=== PATIENT | female | born 1965 | race Caucasian/White ===

== ENCOUNTER 2017-10-27 10:25 | Outpatient (CLI) | payer OTHER | END 2017-10-27 10:33 | disposition home or self-care (01) | LOC: NUCLEAR 10:25 | DX: M79.609 Pain in unspecified limb (principal); M79.89 Other specified soft tissue disorders; E55.9 Vitamin D deficiency, unspecified; N60.12 Diffuse cystic mastopathy of left breast; N60.11 Diffuse cystic mastopathy of right breast; R92.1 Mammographic calcification found on diagnostic imaging of breast; R87.610 Atypical squamous cells of undetermined significance on cytologic smear of cervix (ASC-US); R68.82 Decreased libido; E66.9 Obesity, unspecified; N39.46 Mixed incontinence ==

== ENCOUNTER 2017-10-31 11:02 | Outpatient (CLI) | payer OTHER | END 2017-10-31 12:00 | disposition home or self-care (01) | LOC: NUCLEAR 11:02 | DX: M79.609 Pain in unspecified limb (principal); M79.89 Other specified soft tissue disorders; N60.12 Diffuse cystic mastopathy of left breast; N60.11 Diffuse cystic mastopathy of right breast; E55.9 Vitamin D deficiency, unspecified; N39.46 Mixed incontinence; R92.1 Mammographic calcification found on diagnostic imaging of breast; E66.8 Other obesity; R87.610 Atypical squamous cells of undetermined significance on cytologic smear of cervix (ASC-US); R68.82 Decreased libido ==

== ENCOUNTER 2018-10-10 13:09 | Outpatient (CLI) | payer OTHER | END 2018-10-10 13:27 | disposition home or self-care (01) | LOC: RAD 501 13:09 | DX: M25.572 Pain in left ankle and joints of left foot (principal) ==

== ENCOUNTER 2019-03-21 12:11 | Outpatient (CLI) | payer OTHER | END 2019-03-21 12:19 | disposition home or self-care (01) | LOC: LAB 12:11 | DX: J45.41 Moderate persistent asthma with (acute) exacerbation (principal); J30.1 Allergic rhinitis due to pollen ==

== ENCOUNTER 2019-03-21 12:34 | Outpatient (CLI) | payer OTHER | END 2019-03-21 12:35 | disposition home or self-care (01) | LOC: RAD 12:34 | DX: J45.41 Moderate persistent asthma with (acute) exacerbation (principal); R06.02 Shortness of breath ==

== ENCOUNTER → 2019-04-25 | Outpatient (CLI) | payer OTHER ==
[~2019-04-25] MED LIST: ASA81 MG PO; BUDESONIDE0.5 MG/2 M IH; COZAAR100 MG PO; METFORMIN HCL500 MG PO; TOPROL XL25 MG PO
== END | disposition home or self-care (01) ==
LOC: RAD 11:36
DX: M25.561 Pain in right knee (principal)

== ENCOUNTER 2019-04-26 08:25 | Outpatient (CLI) | payer OTHER ==
[2019-04-26] MEDS ORDERED: METFORMIN HCL500 MG PO (11:06)
[2019-04-26] MEDS ORDERED: COZAAR100 MG PO (11:06)
[2019-04-26] MEDS ORDERED: TOPROL XL25 MG PO (11:07)
[2019-04-26] MEDS ORDERED: ASA81 MG PO (11:08)
[2019-04-26] MEDS ORDERED: BUDESONIDE0.5 MG/2 M IH (11:23)
== END 2019-04-26 09:33 | disposition home or self-care (01) ==
LOC: LAB 08:25
DX: D64.89 Other specified anemias (principal); E88.89 Other specified metabolic disorders; D68.8 Other specified coagulation defects; N39.0 Urinary tract infection, site not specified; Z22.322 Carrier or suspected carrier of Methicillin resistant Staphylococcus aureus; Z76.89 Persons encountering health services in other specified circumstances; I49.8 Other specified cardiac arrhythmias

== ENCOUNTER 2019-05-02 09:13 | Outpatient (CLI) | payer OTHER ==
[2019-05-02] MEDS ORDERED: TOPROL XL50 M1 PO (15:35)
[2019-05-02] MEDS ORDERED: [UNRECOGNIZED DRUG - OTHER] IH (15:36)
== END 2019-05-02 09:19 | disposition home or self-care (01) ==
LOC: LAB 09:13
DX: E11.9 Type 2 diabetes mellitus without complications (principal)

== ENCOUNTER 2019-05-03 05:34 | Day surgery (SDC) | payer OTHER ==
[~2019-05-03 05:34] MED LIST changes: +TOPROL XL50 M1 PO; +[UNRECOGNIZED DRUG - OTHER] IH
== END 2019-05-03 14:10 | disposition home or self-care (01) ==
LOC: CIR.AMB 05:34
DX: M23.321 Other meniscus derangements, posterior horn of medial meniscus, right knee (principal); M23.351 Other meniscus derangements, posterior horn of lateral meniscus, right knee; M12.261 Villonodular synovitis (pigmented), right knee

== ENCOUNTER 2023-05-11 12:33 | Outpatient (CLI) | payer OTHER | END 2023-05-11 12:37 | disposition home or self-care (01) | LOC: NUCLEAR 12:33 | PROVIDERS: ATTEND Specialist | DX: I73.9 Peripheral vascular disease, unspecified (principal) ==

== ENCOUNTER 2023-06-01 09:23 | Outpatient (CLI) | payer OTHER | END 2023-06-01 09:34 | disposition home or self-care (01) | LOC: NUCLEAR 09:23 | PROVIDERS: ATTEND Specialist | DX: I87.2 Venous insufficiency (chronic) (peripheral) (principal) ==

== ENCOUNTER 2023-08-09 11:06 | Outpatient (CLI) | payer OTHER | END 2023-08-09 11:19 | disposition home or self-care (01) | LOC: RAD 11:06 | PROVIDERS: ATTEND Orthopaedic Surgery | DX: M79.671 Pain in right foot (principal); M79.672 Pain in left foot; M25.562 Pain in left knee ==

== ENCOUNTER 2023-08-23 12:27 | Outpatient (CLI) | payer OTHER ==
[2023-08-23 13:49] LABS: HEMATOCRIT 39.2 % (36.0-45.00); MEAN CELL VOLUME 83.7 fL (80.00-100.00); MEAN CORPUSCULAR HEMOGLOBIN 27.7 pg (27.00-32.0); MEAN CORPUSCULAR HGB CONC 33.1 g/dl (32.0-36.0); PLATELET COUNT 286 K/uL (150-450); RED BLOOD COUNT 4.69 M/uL (4.00-6.00); RED CELL DISTRIBUTION WIDTH 14.4 % (11.5-14.5)
[2023-08-23 13:50] LABS: URINE APPEARANCE Clear; URINE BILIRRUBIN Negative (NEGATIVE); URINE BLOOD Negative; URINE COLOR Yellow; URINE GLUCOSE Negative (NEGATIVE); URINE LEUKOCYTE Negative; URINE NITRATE Negative; URINE PROTEIN Negative (NEGATIVE); URINE UROBILINOGEN 0.2 E.U./dl
[2023-08-23 13:53] LABS: URINE BACTERIA 17.6 uL (0.0-1933); URINE EPITHELIAL CELLS 1.8 uL (0.0-38.8); URINE RBC 6.1 uL (0.0-20.8); URINE WBC 0.7 uL (0.0-23.2)
[2023-08-23 14:04] LABS: COL EPI 112 SECONDS (82-175)
[2023-08-23 14:06] LABS: INR < 0.93; PARTIAL THROMBOPLASTIN TIME 27.9 SECONDS (22.0-34.0); PROTHROMBIN TIME 9.8 SECONDS (9.0-11.5)
[2023-08-23 14:13] LABS: ALBUMIN 3.8 gm/dL (3.4-5.0); BILIRUBIN TOTAL 0.49 mg/dL (0.3-1.2); CALCIUM 9.7 mg/dL (8.5-10.1); CREATININE SERUM 0.65 mg/dL (0.55-1.02); GFR 93.29; GLOBULINA 3.3 G/DL (2.4-3.5); POTASSIUM 4.58 mEq/L (3.5-5.1); TOTAL PROTEIN 7.1 gm/dL (6.4-8.2)
== END 2023-08-23 12:31 | disposition home or self-care (01) ==
LOC: EKG 12:27 → LAB 12:27 → RAD 12:27 → LAB 12:31
PROVIDERS: ATTEND Orthopaedic Surgery
DX: D64.9 Anemia, unspecified (principal); E88.89 Other specified metabolic disorders; D68.8 Other specified coagulation defects; N39.0 Urinary tract infection, site not specified; Z20.822 Contact with and (suspected) exposure to COVID-19; E11.9 Type 2 diabetes mellitus without complications; E03.8 Other specified hypothyroidism; I10 Essential (primary) hypertension; Z76.89 Persons encountering health services in other specified circumstances

== ENCOUNTER 2023-09-04 06:55 | Day surgery (SDC) | payer OTHER ==
[~2023-09-04 06:55] MED LIST changes: +D3-5000125 MCG PO; +DETROL; +TOPROL XL25 M1 PO; +[UNRECOGNIZED DRUG - OTHER]
== END 2023-09-04 17:30 | disposition home or self-care (01) ==
LOC: CIR.AMB 06:55
PROVIDERS: ATTEND Orthopaedic Surgery
DX: M76.61 Achilles tendinitis, right leg (principal); Z20.822 Contact with and (suspected) exposure to COVID-19

== ENCOUNTER → 2024-04-17 09:36 | Outpatient (CLI) | payer OTHER | END | disposition home or self-care (01) | LOC: NUCLEAR 09:36 | PROVIDERS: ATTEND Orthopaedic Surgery | DX: I87.2 Venous insufficiency (chronic) (peripheral) (principal) ==

== ENCOUNTER 2024-06-04 05:12 | Day surgery (SDC) | payer OTHER ==
[2024-05-22 10:00] VITALS: BP 130/75
[2024-05-22 10:24] LABS: PH,URINE 6.5 (5.0-8.0); URINE BILIRRUBIN Negative (NEGATIVE); URINE BLOOD Negative; URINE COLOR Dark Yellow; URINE GLUCOSE Negative (NEGATIVE); URINE KETONE Trace (NEGATIVE); URINE LEUKOCYTE Negative; URINE NITRATE Negative; URINE PROTEIN Negative (NEGATIVE)
[2024-05-22 10:26] LABS: URINE BACTERIA 15.1 uL (0.0-1933); URINE RBC 29.9 uL (0.0-20.8); URINE WBC 2.7 uL (0.0-23.2)
[2024-05-22 10:35] LABS: HEMATOCRIT 39.1 % (36.0-45.00); HEMOGLOBIN 12.9 g/dL (12.0-15.00); MEAN CORPUSCULAR HEMOGLOBIN 27.3 pg (27.00-32.0); MEAN CORPUSCULAR HGB CONC 32.9 g/dl (32.0-36.0); PLATELET COUNT 269 K/uL (150-450); RED BLOOD COUNT 4.72 M/uL (4.00-6.00); RED CELL DISTRIBUTION WIDTH 14.7 % (11.5-14.5)
[2024-05-22 10:37] LABS: URINE APPEARANCE CLEAR; URINE CAST 0.15 uL (0.0-1.40)
[2024-05-22 10:49] LABS: INR 0.99; PARTIAL THROMBOPLASTIN TIME 29.6 SECONDS (22.0-34.0); PROTHROMBIN TIME 10.8 SECONDS (9.0-11.5)
[2024-05-22 11:06] LABS: ALBUMIN 3.9 gm/dL (3.4-5.0); BILIRUBIN TOTAL 0.84 mg/dL (0.3-1.2); CALCIUM 9.5 mg/dL (8.5-10.1); CREATININE SERUM 0.58 mg/dL (0.55-1.02); GFR 106.04; GLOBULINA 3.4 G/DL (2.4-3.5); POTASSIUM 4.39 mEq/L (3.5-5.1); TOTAL PROTEIN 7.3 gm/dL (6.4-8.2)
[~2024-06-04] VITALS: Ht 160 cm; Wt 102.1 kg
[2024-06-04] MEDS ORDERED: BUPIVACAINE HCL 30 ML VIAL IJ ONE (10:00)
[2024-06-04] MEDS ORDERED: CEFAZOLIN SODIUM 1,000 MG VIAL IV ONE (10:00)
[2024-06-04] MEDS ORDERED: LIDOCAINE HCL 1%/EPINEPHRINE 20ML VIAL IJ ONE (10:00)
== END 2024-06-04 14:40 | disposition home or self-care (01) ==
LOC: CIR.AMB
PROVIDERS: ATTEND Orthopaedic Surgery
DX: M23.262 Derangement of other lateral meniscus due to old tear or injury, left knee (principal); M17.12 Unilateral primary osteoarthritis, left knee; M65.862 Other synovitis and tenosynovitis, left lower leg

== ENCOUNTER 2024-09-11 06:09 | Outpatient (CLI) | payer OTHER | END 2024-09-11 06:25 | disposition home or self-care (01) | LOC: RAD 06:09 | PROVIDERS: ATTEND Orthopaedic Surgery | DX: M19.072 Primary osteoarthritis, left ankle and foot (principal); M76.71 Peroneal tendinitis, right leg; M25.571 Pain in right ankle and joints of right foot; M25.572 Pain in left ankle and joints of left foot; M79.672 Pain in left foot | CPT/HCPCS: 73721 ==

== ENCOUNTER → 2025-02-26 | Outpatient (CLI) | payer OTHER | END | disposition home or self-care (01) | LOC: MRI 07:02 | PROVIDERS: ATTEND Psychiatry & Neurology Clinical Neurophysiology | DX: G31.84 Mild cognitive impairment of uncertain or unknown etiology (principal) | CPT/HCPCS: 70551 ==

== ENCOUNTER 2025-03-12 10:23 | Outpatient (CLI) | payer OTHER | END 2025-03-12 10:39 | disposition home or self-care (01) | LOC: RAD 10:23 | PROVIDERS: ATTEND Orthopaedic Surgery | DX: M25.561 Pain in right knee (principal); M25.562 Pain in left knee; M17.0 Bilateral primary osteoarthritis of knee ==

== ENCOUNTER 2025-03-17 09:50 | Inpatient (IN) | payer OTHER ==
[~2025-03-17] VITALS: Ht 160 cm; Wt 99.8 kg
[2025-03-17 10:35] VITALS: BP 143/66
[2025-03-17 10:43] VITALS: BP 150/83
[2025-03-24] MEDS ORDERED: BUPIVACAINE HCL 30 ML VIAL IJ ONE (08:45)
[2025-03-24] MEDS ORDERED: TRANEXAMIC ACID 100MG/1ML (1000MG) AMPUL IV ONE ×2 (08:45→09:00)
[2025-03-24] MEDS ORDERED: LIDOCAINE HCL 1%/EPINEPHRINE 20ML VIAL IJ ONE (08:45)
[2025-03-24] MEDS ORDERED: ISOPROPYL ALCOHOL 30 ML OUNCE TOP ONE (09:00)
[2025-03-24] MEDS ORDERED: KETOROLAC TROMETHAMINE 60 MG VIAL IM ONE (09:00)
[2025-03-24] MEDS ORDERED: MORPHINE SULFATE 4 MG/ML VIAL IV ONE ×3 (09:00→15:50)
[2025-03-24] MEDS ORDERED: CEFAZOLIN SODIUM 1,000 MG VIAL IV ONE (09:00)
[2025-03-24] MEDS ORDERED: VANCOMYCIN HCL 1,000 MG VIAL IR ONE (10:15)
[2025-03-24] MEDS ORDERED: MEPERIDINE HCL/PF 50 MG/ML VIAL IM PRN (16:00)
[2025-03-24] MEDS ORDERED: ONDANSETRON 4 MG TAB.RAPDIS PO PRN (16:00)
[2025-03-24] MEDS ORDERED: TRAMADOL HCL 50 MG TABLET PO PRN (16:00)
[2025-03-24] MEDS ORDERED: ONDANSETRON HCL 2 MG/ML VIAL IV PRN (16:00)
[2025-03-24] MEDS ORDERED: SODIUM CHLORIDE 0.45 % 1,000 ML IV SCH (16:00)
[2025-03-24] MEDS ORDERED: PROMETHAZINE HCL 50 MG/ML AMPUL IM PRN (16:00)
[2025-03-24] MEDS ORDERED: CEFAZOLIN SODIUM 1,000 MG VIAL IV SCH (17:00)
[2025-03-24] MEDS ORDERED: CELECOXIB 200 MG CAPSULE PO SCH (17:00)
[2025-03-24] MEDS ORDERED: ACETAMINOPHEN 325 MG TABLET PO SCH (17:00)
[2025-03-24] MEDS ORDERED: PANTOPRAZOLE SODIUM 40 MG TABLET.DR PO SCH (17:00)
[2025-03-24 17:30] VITALS: BP 143/66; O2SAT 98
[2025-03-24] MEDS ORDERED: KETOROLAC TROMETHAMINE 10 MG TABLET PO SCH (21:00)
[2025-03-25 03:44] VITALS: BP 113/64; O2SAT 94
[2025-03-25 07:48] LABS: BASO % 0.5 % (0.1-1.2); EOS # 0.32 (0.04-0.54); EOS % 5.7 % (0.7-7.0); LYMPH # 1.27 (1.18-3.74); LYMPH % 22.6 % (19.3-53.1); MEAN PLATELET VOLUME 10.40 fl (9.4-12.4); MONO # 0.22 (0.24-0.82); MONO % 3.9 % (4.7-12.5); NEUT # 3.76 (1.56-6.13); NEUT % 66.9 % (34.0-71.1); RED CELL DISTRIBUTION WIDTH 13.7 % (11.6-14.4)
[2025-03-25 08:00] VITALS: BP 96/62; O2SAT 97
[2025-03-25] MEDS ORDERED: RIVAROXABAN 10 MG TAB PO SCH (09:00)
[2025-03-25] MEDS ORDERED: IRON FUM,PS/FOLIC/BCOMP,C NO.9 1 CAP CAPSULE PO NR (11:00)
[2025-03-25] MEDS ORDERED: INSULIN LISPRO 1,000 UNIT/10 ML UNITS SUBCUTANEO PRN (11:00)
[2025-03-25] MEDS ORDERED: DEXTROSE 50 % IN WATER 0.5 G/ML VIAL IV PRN (11:00)
[2025-03-25 16:00] VITALS: BP 105/61; O2SAT 98
[2025-03-26 01:56] VITALS: BP 119/72; O2SAT 100
[2025-03-26 06:37] LABS: BASO % 0.5 % (0.1-1.2); EOS # 0.36 (0.04-0.54); EOS % 5.8 % (0.7-7.0); LYMPH # 1.83 (1.18-3.74); LYMPH % 29.7 % (19.3-53.1); MEAN PLATELET VOLUME 10.30 fl (9.4-12.4); MONO # 0.37 (0.24-0.82); MONO % 6.0 % (4.7-12.5); NEUT # 3.56 (1.56-6.13); NEUT % 57.7 % (34.0-71.1); RED CELL DISTRIBUTION WIDTH 13.8 % (11.6-14.4)
[2025-03-26 08:31] VITALS: BP 130/80; O2SAT 99
[2025-03-26] MEDS ORDERED: IRON FUM,PS/FOLIC/BCOMP,C NO.9 1 CAP CAPSULE PO SCH (09:00)
[2025-03-26] MEDS ORDERED: SENNA/DOCUSATE SODIUM 1 TAB TABLET PO SCH (09:00)
[2025-03-26] MEDS ORDERED: METOPROLOL SUCCINATE 50 MG TAB.SR.24H PO SCH (09:00)
[2025-03-26 17:49] VITALS: BP 111/49; O2SAT 98
[2025-03-27 01:12] VITALS: BP 114/73; O2SAT 100
[2025-03-27 08:48] VITALS: BP 116/74; O2SAT 97
== END 2025-03-27 11:20 | disposition home health service (06) | DRG 470 ==
LOC: SURG 03-24 10:02 → O/R 03-24 10:02 → SURH 03-24 10:30 → SURG 03-24 12:44 → SURH 03-24 18:00 → SURG 03-27 11:20
PROVIDERS: ADMIT Orthopaedic Surgery; ATTEND Orthopaedic Surgery
PROC: 0SRD0J9 Replacement of Left Knee Joint with Synthetic Substitute, Cemented, Open Approach (ICD-10-PCS; principal; 2025-03-24 18:00)
DX: M17.12 Unilateral primary osteoarthritis, left knee (principal); M85.662 Other cyst of bone, left lower leg; D64.89 Other specified anemias; I10 Essential (primary) hypertension; Z74.09 Other reduced mobility